=== PATIENT | male | born 1995 | race Caucasian/White ===

== ENCOUNTER 2018-06-18 07:21 | Emergency (ER) | payer OTHER ==
[2018-06-18] MEDS ORDERED: LIDOCAINE 1% W/EPI 1:100,000 MDV 50 ML VIAL ONE ×2 (07:55→08:07)
--- NOTE | 2018-06-18 08:00 | EDPHYS ---
Physician Documentation [facility] Name: Benson Rice Age: 22 yrs Sex: Male : 1995 Arrival Date: 06/18/2018 Time: 07:25 Bed 20 Private MD: None, None ED Physician Tyrese Nicole HPI: 06/18 07:53 This 22 yrs old Male presents to ER via Ambulatory with complaints of Insect eb Bite - Ear. 07:53 The patient presents with an abscess of the left ear and left ear lobe, The patient eb presents with cellulitis of the left ear and left ear lobe. Description: The affected area is small, confluent, draining, erythematous, pointed, swollen, tense. Onset: The symptoms/episode began/occurred 3 day(s) ago. Possible cause(s): unknown. Associated signs and symptoms: The patient has no apparent associated signs or symptoms. Modifying factors: the symptoms are alleviated by nothing, the symptoms are aggravated by pressure, squeezing the lesion and expressing the contents, touching. Severity of symptoms: At their worst the symptoms were mild, in the emergency department the symptoms are unchanged. The patient has experienced similar episodes in the past, several times. Historical: - Allergies: 07:35 No Known Allergies; ss - Home Meds: 07:35 None [Active]; ss - PMHx: 07:35 None; ss - PSHx: 07:35 None; ss - Immunization history:: Adult Immunizations up to date. - Social history:: Smoking status: Patient/guardian denies using tobacco. - Ebola Screening: : Patient denies exposure to infectious person Patient denies travel to an Ebola-affected area in the 21 days before illness onset. - Family history:: not pertinent. ROS: 07:53 Constitutional: Negative for fever, chills, and weight loss, Eyes: Negative for injury, eb pain, redness, and discharge, ENT: Negative for injury, pain, and discharge, Neck: Negative for injury, pain, and swelling, Cardiovascular: Negative for chest pain, palpitations, and edema, Respiratory: Negative for shortness of breath, cough, wheezing, and pleuritic chest pain, Abdomen/GI: Negative for abdominal pain, nausea, vomiting, diarrhea, and constipation, Back: Negative for injury and pain, : Negative for injury, bleeding, discharge, and swelling, MS/Extremity: Negative for injury and deformity, Neuro: Negative for headache, weakness, numbness, tingling, and seizure, Psych: Negative for depression, anxiety, suicide ideation, homicidal ideation, and hallucinations, Allergy/Immunology: Negative for hives, rash, and allergies, Endocrine: Negative for neck swelling, polydipsia, polyuria, polyphagia, and marked weight changes. 07:53 Skin: Positive for abscess, swelling, of the left ear and left ear lobe. Exam: 07:53 Constitutional: This is a well developed, well nourished patient who is awake, alert, eb and in no acute distress. Head/Face: Normocephalic, atraumatic. Eyes: Pupils equal round and reactive to light, extra-ocular motions intact. Lids and lashes normal. Conjunctiva and sclera are non-icteric and not injected. Cornea within normal limits. Periorbital areas with no swelling, redness, or edema. ENT: Nares patent. No nasal discharge, no septal abnormalities noted. Tympanic membranes are normal and external auditory canals are clear. Oropharynx with no redness, swelling, or masses, exudates, or evidence of obstruction, uvula midline. Mucous membranes moist. Neck: Trachea midline, no thyromegaly or masses palpated, and no cervical lymphadenopathy. Supple, full range of motion without nuchal rigidity, or vertebral point tenderness. No Meningismus. Chest/axilla: Normal chest wall appearance and motion. Nontender with no deformity. No lesions are appreciated. Cardiovascular: Regular rate and rhythm with a normal S1 and S2. No gallops, murmurs, or rubs. Normal PMI, no JVD. No pulse deficits. Respiratory: Lungs have equal breath sounds bilaterally, clear to auscultation and percussion. No rales, rhonchi or wheezes noted. No increased work of breathing, no retractions or nasal flaring. Abdomen/GI: Soft, non-tender, with normal bowel sounds. No distension or tympany. No guarding or rebound. No evidence of tenderness throughout. Back: No spinal tenderness. No costovertebral tenderness. Full range of motion. Male : Normal genitalia with no discharge or lesions. MS/ Extremity: Pulses equal, no cyanosis. Neurovascular intact. Full, normal range of motion. Neuro: Awake and alert, GCS 15, oriented to person, place, time, and situation. Cranial nerves II-XII grossly intact. Motor strength 5/5 in all extremities. Sensory grossly intact. Cerebellar exam normal. Normal gait. Psych: Awake, alert, with orientation to person, place and time. Behavior, mood, and affect are within normal limits. 07:53 Skin: abscess, that is small, that is moderate sized, cellulitis, that is mild, that is moderate, induration, that is moderate is noted. Vital Signs: 07:35 BP 113 / 73; Pulse 87; Resp 15; Temp 98.6(TE); Pulse Ox 97% on R/A; Weight 97.52 kg; Height 5 ft. 11 in. (180.34 cm); Pain 0/10; 07:35 Body Mass Index 29.99 (97.52 kg, 180.34 cm) Procedures: 07:53 I \T\ D: Incision and drainage was performed for an abscess of the left Prepped with [facility] Betadine, Anesthetized with 5 ml's 2% Lidocaine. Incised with #11 blade. Drained moderate amount Packed with iodoform gauze, Dressing: non-Adherent dressing, the patient tolerated the procedure well. MDM: 07:32 Patient medically screened. [facility] 07:53 Data reviewed: vital signs, nurses notes. [facility] 06/18 07:58 Order name: Wound Culture [facility] 06/18 07:52 Order name: Dressing - Wound; Complete Time: 08:14 [facility] 06/18 07:52 Order name: Gloves, Sterile; Complete Time: 07:58 [facility] 06/18 07:52 Order name: Setup Suture Tray; Complete Time: 07:58 [facility] Administered Medications: 08:30 Drug: Doxycycline 200 mg Route: PO; 09:13 Follow up: Response: No adverse reaction 08:30 Drug: Bactrim (160 mg-800 mg (DS) 1 tablet Route: PO; 09:13 Follow up: Response: No adverse reaction 08:38 Drug: Lidocaine-Epinephrine -1%: (1:100,000) 10 ml {Note: approx 2-[address] Nicole to wound.} Volume: 20 ml; Route: Infiltration; Disposition: 06/18/18 07:59 Discharged to Home. Impression: Cutaneous abscess of face. - Condition is Stable. - Discharge Instructions: Skin Abscess, Incision and Drainage, Skin Abscess, Xatr-[id number], Incision and Drainage, Care After. - Prescriptions for Tylenol- Codeine #3 300-30 mg Oral Tablet - take 2 tablets by ORAL route every 6 hours As needed; 24 tablet. Doxycycline Hyclate 100 mg Oral Tablet - take 1 tablet by ORAL route every 12 hours; 20 tablet. Bactrim DS 800- 160 mg Oral Tablet - take 1 tablet by ORAL route every 12 hours for 10 days; 20 tablet. - Medication Reconciliation Form, Thank You Letter, Antibiotic Education, Prescription Opioid Use, Work release form form. - Follow up: Private Physician; When: 2 - 3 days; Reason: Recheck today's complaints, Continuance of care, Re-evaluation by your physician. Follow up: Irina Noguera MD; When: 2 - 3 days; Reason: Recheck today's complaints, Continuance of care, Re-evaluation by your physician. - Problem is new. - Symptoms have improved. Signatures: Dispatcher [employer] EDVT Tyrese Nicole MD MD cha Smirch, Shelby, RN RN ss Corrections: (The following items were deleted from the chart) 09:13 07:59 06/18/2018 07:59 Discharged to Home. Impression: Cutaneous abscess of face. ss Condition is Stable. Forms are Medication Reconciliation Form, Thank You Letter, Antibiotic Education, Prescription Opioid Use. Follow up: Private Physician; When: 2 - 3 days; Reason: Recheck today's complaints, Continuance of care, Re-evaluation by your physician. Follow up: Irina Noguera; When: 2 - 3 days; Reason: Recheck today's complaints, Continuance of care, Re-evaluation by your physician. Problem is new. Symptoms have improved. eb
--- NOTE | 2018-06-18 08:00 | ER ---
Nurse's Notes [facility] Name: Benson Rice Age: 22 yrs Sex: Male : 1995 Arrival Date: 06/18/2018 Time: 07:25 Bed 20 Private MD: None, None Diagnosis: Cutaneous abscess of face Presentation: 06/18 07:33 Presenting complaint: Patient states: abscess to L ear lobe that began two days ago. ss Denies drainage. Pt reports he attempted to drain it himself, but only some blood would come out. Transition of care: patient was not received from another setting of care. Onset of symptoms was June 15, 2018. Risk Assessment: Do you want to hurt yourself or someone else? Patient reports no desire to harm self or others. Initial Sepsis Screen: Does the patient meet any 2 criteria? No. Patient's initial sepsis screen is negative. Does the patient have a suspected source of infection? Yes: Skin breakdown/wound. Care prior to arrival: None. 07:33 Method Of Arrival: Ambulatory ss 07:33 Acuity: NILES 4 ss Historical: - Allergies: 07:35 No Known Allergies; ss - Home Meds: 07:35 None [Active]; ss - PMHx: 07:35 None; ss - PSHx: 07:35 None; ss - Immunization history:: Adult Immunizations up to date. - Social history:: Smoking status: Patient/guardian denies using tobacco. - Ebola Screening: : Patient denies exposure to infectious person Patient denies travel to an Ebola-affected area in the 21 days before illness onset. - Family history:: not pertinent. Screenin:35 Abuse screen: Denies threats or abuse. Denies injuries from another. Nutritional ss screening: No deficits noted. Tuberculosis screening: Never had TB. Fall Risk None identified. Assessment: 07:35 General: Appears in no apparent distress. comfortable, Behavior is calm, cooperative, ss Denies fever, feeling ill, fatigue, chills. Pain: Complains of pain in left ear lobe Pain currently is 0 out of 10 on a pain scale. at worst was 7 out of 10 on a pain scale. Quality of pain is described as tender, Pain began 2-3 days ago. Aggravated by applying pressure to area. Neuro: Level of Consciousness is awake, alert. Cardiovascular: Capillary refill < 3 seconds is brisk in bilateral. Respiratory: Airway is patent Respiratory effort is even, unlabored, Respiratory pattern is regular, symmetrical. GI: Patient currently denies diarrhea, nausea, vomiting. : No signs and/or symptoms were reported regarding the genitourinary system. EENT: Oral mucosa is moist. Derm: Skin is intact, is healthy with good turgor, Skin is pink, warm \T\ dry. Abscess located on left ear lobe. Musculoskeletal: Circulation, motion, and sensation intact. Range of motion: intact in all extremities, Swelling absent. Vital Signs: 07:35 BP 113 / 73; Pulse 87; Resp 15; Temp 98.6(TE); Pulse Ox 97% on R/A; Weight 97.52 kg; ss Height 5 ft. 11 in. (180.34 cm); Pain 0/10; 07:35 Body Mass Index 29.99 (97.52 kg, 180.34 cm) ED Course: 07:25 Patient arrived in ED. sb2 07:25 None, None is Private Physician. sb2 07:32 Luana Pham, MAGGIE is Primary Nurse. ss 07:32 Tyrese Nicole MD is Attending Physician. eb 07:34 Triage completed. ss 07:35 Arm band placed on right wrist. ss 07:35 Patient has correct armband on for positive identification. Bed in low position. Call ss light in reach. 07:59 Irina Noguera MD is Referral Physician. eb 08:40 Assist provider with I \T\ D: of an abscess on left ear lobe Set up I\T\D tray. Performed ss by Tyrese Nicole MD Culture sent to lab. Wound packed. iodoform gauze, Dressing with Neosporin and 4X4s, tape Patient tolerated well. 09:12 Patient did not have IV access during this emergency room visit. ss Administered Medications: 08:30 Drug: Doxycycline 200 mg Route: PO; ss 09:13 Follow up: Response: No adverse reaction ss 08:30 Drug: Bactrim (160 mg-800 mg (DS) 1 tablet Route: PO; ss 09:13 Follow up: Response: No adverse reaction 08:38 Drug: Lidocaine-Epinephrine -1%: (1:100,000) 10 ml {Note: approx 2-3 mL administered by ss Dr. Nicole to wound.} Volume: 20 ml; Route: Infiltration; Outcome: 07:59 Discharge ordered by . eb 09:12 Discharged to home ambulatory. 09:12 Condition: good 09:12 Discharge instructions given to patient, Instructed on discharge instructions, follow up and referral plans. medication usage, wound care, Demonstrated understanding of instructions, follow-up care, medications, wound care, Prescriptions given X 3. 09:13 Patient left the ED. Addendum: 06/21/2018 08:14 Addendum: Culture Results: Positive wound culture. No further action required. Bacteria i w sensitive to prescribed antibiotic. Signatures: Tyrese Nicole MD MD cha Williams, Irene, RN RN Luana Pal RN RN ss Billeau, Sheri sb2
[2018-06-18] MEDS ORDERED: DOXYCYCLINE 100 MG CAP PO ONE (08:07)
[2018-06-18] MEDS ORDERED: SMZ./TMP. 800/160 MG TABLET ONE (08:07)
[2018-06-18 09:16] VITALS: BP 113/73; TEMP 98.6; O2SAT 97
== END 2018-06-18 09:13 | disposition home or self-care (01) ==
LOC: ER 07:21
PROC: 0991XZZ Drainage of Left External Ear, External Approach (ICD-10-PCS; principal; 2018-06-18)
DX: H60.02 Abscess of left external ear (principal)
CPT/HCPCS: 87070; 87077; 87186; 87205; 99284

== ENCOUNTER 2019-12-02 08:27 | Emergency (ER) | payer OTHER, SELFPAY ==
--- NOTE | 2019-12-02 08:55 | ER ---
Nurse's Notes [facility] Name: Benson Rice Age: 24 yrs Sex: Male : 1995 Arrival Date: 12/02/2019 Time: 08:29 Bed 17 Private MD: Diagnosis: Pain in left knee-strain Presentation: 12/02 08:35 Presenting complaint: Patient states: left knee pain after playing basketball sv yesterday. Transition of care: patient was not received from another setting of care. Onset of symptoms was December 01, 2019. Risk Assessment: Do you want to hurt yourself or someone else? Patient reports no desire to harm self or others. Initial Sepsis Screen: Does the patient meet any 2 criteria? No. Patient's initial sepsis screen is negative. Does the patient have a suspected source of infection? No. Patient's initial sepsis screen is negative. Care prior to arrival: None. 08:35 Method Of Arrival: Ambulatory sv 08:35 Acuity: NILES 4 sv Triage Assessment: 08:38 General: Appears in no apparent distress. uncomfortable, well groomed, well developed, sv Behavior is calm, cooperative, appropriate for age. Pain: Complains of pain in left knee Pain currently is 1 out of 10 on a pain scale. at worst was 9 out of 10 on a pain scale. Neuro: Level of Consciousness is awake, alert, obeys commands, Oriented to person, place, time, situation, Moves all extremities. Full function Gait is steady. Respiratory: Airway is patent Respiratory effort is even, unlabored, Respiratory pattern is regular, symmetrical. Derm: Skin is pink, warm \T\ dry. Musculoskeletal: Circulation, motion, and sensation intact. Range of motion: intact in all extremities. Historical: - Allergies: 08:37 No Known Allergies; sv - PMHx: 08:37 None; sv - PSHx: 08:37 None; sv - Immunization history:: Adult Immunizations up to date, Flu vaccine is not up to date. - Social history:: Smoking status: Patient/guardian denies using tobacco. - Ebola Screening: : No symptoms or risks identified at this time. - Family history:: not pertinent. Screenin:37 Abuse screen: Denies threats or abuse. Denies injuries from another. Nutritional sv screening: No deficits noted. Tuberculosis screening: No symptoms or risk factors identified. Fall Risk None identified. Assessment: 09:10 Reassessment: Pt up for discharge, but is waiting for xrays to be done and resulted. sv 09:59 Reassessment: Patient appears in no apparent distress at this time. No changes from sv previously documented assessment. Patient and/or family updated on plan of care and expected duration. Pain level reassessed. Patient is alert, oriented x 3, equal unlabored respirations, skin warm/dry/pink. Vital Signs: 08:37 BP 118 / 72; Pulse 94; Resp 16; Temp 98.3; Pulse Ox 98% ; Weight 104.33 kg; Height 5 sv ft. 11 in. (180.34 cm); Pain 1/10; 09:48 BP 111 / 77; Pulse 84; Resp 16; Pulse Ox 98% ; sv 08:37 Body Mass Index 32.08 (104.33 kg, 180.34 cm) sv ED Course: 08:29 Patient arrived in ED. ag5 08:31 Irina Mills RN is Primary Nurse. sv 08:31 Tyrese Nicole MD is Attending Physician. eb 08:36 Triage completed. sv 08:37 Arm band placed on Patient placed in an exam room, on a stretcher. sv 08:37 Patient has correct armband on for positive identification. Bed in low position. Call sv light in reach. Pulse ox on. NIBP on. Door closed. Head of bed elevated. 08:38 Awaiting ED provider evaluation. sv 08:42 ED physician to see patient. sv 08:54 Tristen Sarkar MD is Referral Physician. eb 09:08 Awaiting for x-ray. sv 09:29 X-ray(s) taken. sv 09:42 Knee Left 3 View XRAY In Process Unspecified. EDMS 09:59 No provider procedures requiring assistance completed. Patient did not have IV access sv during this emergency room visit. Administered Medications: 08:56 Drug: Motrin 800 mg Route: PO; sv 09:58 Follow up: Response: No adverse reaction sv Outcome: 08:55 Discharge ordered by . eb 09:59 Discharged to home ambulatory. sv 09:59 Condition: stable 09:59 Discharge instructions given to patient, Instructed on discharge instructions, follow up and referral plans. no drinking with medication, no driving heavy equipment, medication usage, Demonstrated understanding of instructions, follow-up care, medications, Prescriptions given X 2. 09:59 Patient left the ED. sv Signatures: Dispatcher [employer] Irina Fermin RN RN sv Anderson, Corey, MD MD cha Gaskin, Ajare ag5
--- NOTE | 2019-12-02 08:55 | EDPHYS ---
Physician Documentation [facility] Name: Benson Rice Age: 24 yrs Sex: Male : 1995 Arrival Date: 12/02/2019 Time: 08:29 Bed 17 Private MD: ED Physician Tyrese Nicole HPI: 12/02 08:48 This 24 yrs old Male presents to ER via Ambulatory with complaints of Knee eb Pain. 08:48 The patient presents with decreased range of motion, pain, tenderness. The complaints eb affect the lateral aspect of left knee. Context: The problem was sustained at a sports field or court. Onset: The symptoms/episode began/occurred yesterday. Modifying factors: The symptoms are alleviated by elevating leg, remaining still, the symptoms are aggravated by movement. Associated signs and symptoms: The patient has no apparent associated signs or symptoms. Severity of symptoms: At their worst the symptoms were mild, in the emergency department the symptoms are unchanged. The patient has not experienced similar symptoms in the past. Historical: - Allergies: 08:37 No Known Allergies; sv - PMHx: 08:37 None; sv - PSHx: 08:37 None; sv - Immunization history:: Adult Immunizations up to date, Flu vaccine is not up to date. - Social history:: Smoking status: Patient/guardian denies using tobacco. - Ebola Screening: : No symptoms or risks identified at this time. - Family history:: not pertinent. ROS: 08:48 Constitutional: Negative for fever, chills, and weight loss, Eyes: Negative for injury, eb pain, redness, and discharge, ENT: Negative for injury, pain, and discharge, Neck: Negative for injury, pain, and swelling, Cardiovascular: Negative for chest pain, palpitations, and edema, Respiratory: Negative for shortness of breath, cough, wheezing, and pleuritic chest pain, Abdomen/GI: Negative for abdominal pain, nausea, vomiting, diarrhea, and constipation, Back: Negative for injury and pain, : Negative for injury, bleeding, discharge, and swelling, Skin: Negative for injury, rash, and discoloration, Neuro: Negative for headache, weakness, numbness, tingling, and seizure, Psych: Negative for depression, anxiety, suicide ideation, homicidal ideation, and hallucinations, Allergy/Immunology: Negative for hives, rash, and allergies, Endocrine: Negative for neck swelling, polydipsia, polyuria, polyphagia, and marked weight changes. 08:48 MS/extremity: Positive for decreased range of motion, pain, of the lateral aspect of left knee. Exam: 08:48 Constitutional: This is a well developed, well nourished patient who is awake, alert, eb and in no acute distress. Head/Face: Normocephalic, atraumatic. Eyes: Pupils equal round and reactive to light, extra-ocular motions intact. Lids and lashes normal. Conjunctiva and sclera are non-icteric and not injected. Cornea within normal limits. Periorbital areas with no swelling, redness, or edema. ENT: Nares patent. No nasal discharge, no septal abnormalities noted. Tympanic membranes are normal and external auditory canals are clear. Oropharynx with no redness, swelling, or masses, exudates, or evidence of obstruction, uvula midline. Mucous membranes moist. Neck: Trachea midline, no thyromegaly or masses palpated, and no cervical lymphadenopathy. Supple, full range of motion without nuchal rigidity, or vertebral point tenderness. No Meningismus. Chest/axilla: Normal chest wall appearance and motion. Nontender with no deformity. No lesions are appreciated. Cardiovascular: Regular rate and rhythm with a normal S1 and S2. No gallops, murmurs, or rubs. Normal PMI, no JVD. No pulse deficits. Respiratory: Lungs have equal breath sounds bilaterally, clear to auscultation and percussion. No rales, rhonchi or wheezes noted. No increased work of breathing, no retractions or nasal flaring. Abdomen/GI: Soft, non-tender, with normal bowel sounds. No distension or tympany. No guarding or rebound. No evidence of tenderness throughout. Back: No spinal tenderness. No costovertebral tenderness. Full range of motion. Skin: Warm, dry with normal turgor. Normal color with no rashes, no lesions, and no evidence of cellulitis. Neuro: Awake and alert, GCS 15, oriented to person, place, time, and situation. Cranial nerves II-XII grossly intact. Motor strength 5/5 in all extremities. Sensory grossly intact. Cerebellar exam normal. Normal gait. Psych: Awake, alert, with orientation to person, place and time. Behavior, mood, and affect are within normal limits. 08:48 Musculoskeletal/extremity: Extremities: noted in the lateral aspect of left knee: decreased ROM, pain, ROM: limited active range of motion due to pain, limited passive range of motion due to pain, Circulation is intact in all extremities. Sensation intact. Compartment Syndrome exam of affected extremity: is normal. DVT Exam: no swelling, negative Homans' sign noted on exam, no appreciated bluish discoloration, no erythema, no increased warmth, pain, tenderness. 08:52 Musculoskeletal/extremity: Joints: pain at rest, painful range of motion, neg effusion, eb neg isi, medial and lateral stable. Vital Signs: 08:37 BP 118 / 72; Pulse 94; Resp 16; Temp 98.3; Pulse Ox 98% ; Weight 104.33 kg; Height 5 sv ft. 11 in. (180.34 cm); Pain 1/10; 09:48 BP 111 / 77; Pulse 84; Resp 16; Pulse Ox 98% ; sv 08:37 Body Mass Index 32.08 (104.33 kg, 180.34 cm) sv MDM: 08:31 Patient medically screened. [facility] 08:52 Data reviewed: vital signs, nurses notes, radiologic studies, plain films. [facility] 12/02 09:03 Order name: Knee Left 3 View XRAY [facility] 12/02 08:48 Order name: Ice pack; Complete Time: 09:08 [facility] 12/02 08:48 Order name: Julius wrap-joint; Complete Time: 09:58 [facility] Administered Medications: 08:56 Drug: Motrin 800 mg Route: PO; sv 09:58 Follow up: Response: No adverse reaction sv Disposition: 12/02/19 08:55 Discharged to Home. Impression: Pain in left knee - strain. - Condition is Stable. - Discharge Instructions: Joint Pain, Musculoskeletal Pain, Knee Pain. - Prescriptions for Ibuprofen 600 mg Oral Tablet - take 1 tablet by ORAL route every 6 hours As needed take with food; 20 tablet. Tylenol- Codeine #3 300-30 mg Oral Tablet - take 2 tablets by ORAL route every 6 hours As needed; 24 tablet. - Work release form, Medication Reconciliation Form, Thank You Letter, Antibiotic Education, Prescription Opioid Use form. - Follow up: Private Physician; When: 5 - 6 days; Reason: Recheck today's complaints, Continuance of care, Re-evaluation by your physician. Follow up: Tristen Sarkar MD; When: 2 - 3 days; Reason: Recheck today's complaints, Continuance of care, Re-evaluation by your physician. - Problem is new. - Symptoms have improved. Signatures: Dispatcher [employer] Irina Fermin, MAGGIE RN Tyrese Sahni MD MD cha Corrections: (The following items were deleted from the chart) 09:59 08:55 12/02/2019 08:55 Discharged to Home. Impression: Pain in left knee - strain. sv Condition is Stable. Forms are Work release form, Medication Reconciliation Form, Thank You Letter, Antibiotic Education, Prescription Opioid Use. Follow up: Private Physician; When: 5 - 6 days; Reason: Recheck today's complaints, Continuance of care, Re-evaluation by your physician. Follow up: Dr. Tristen Sarkar; When: 2 - 3 days; Reason: Recheck today's complaints, Continuance of care, Re-evaluation by your physician. Problem is new. Symptoms have improved. eb
[2019-12-02] MEDS ORDERED: IBUPROFEN 400 MG TAB ONE (08:57)
--- NOTE | 2019-12-02 10:00 | RAD REPORT ---
EXAM DESCRIPTION: RAD - Knee Left 3 View - 12/02/2019 9:42 am CLINICAL HISTORY: PAIN COMPARISON: No comparisons FINDINGS: No bone or joint abnormality seen.
[2019-12-02 10:22] VITALS: TEMP 98.3; O2SAT 98
[2019-12-02 10:24] VITALS: BP 111/77
== END 2019-12-02 09:59 | disposition home or self-care (01) ==
LOC: ER 08:27
DX: S86.912A Strain of unspecified muscle(s) and tendon(s) at lower leg level, left leg, initial encounter (principal); Y93.67 Activity, basketball; Y92.9 Unspecified place or not applicable; Y99.9 Unspecified external cause status
CPT/HCPCS: 99284